=== PATIENT | male | born 1980 ===

== ENCOUNTER 2017-07-21 10:40 | Emergency (ER) | payer OTHER ==
[~2017-07-21] VITALS: Ht 195.6 cm; Wt 95.3 kg
[2017-07-21] MEDS ORDERED: ALLO300T2 PO (10:50)
[2017-07-21] MEDS ORDERED: COLC0.6C3 PO (10:50)
--- NOTE | 2017-07-21 10:50 | NUR ---
Dr Holder at the bedside for eval and exam.
[2017-07-21] MEDS ORDERED: KETOROLAC TROMETHAMINE 60 MG INJ IM ONE ×2 (11:00→11:09)
--- NOTE | 2017-07-21 11:05 | NUR ---
Patient discharged to home in stable conditon. Written and verbal after care instructions given. Patient verbalizes understanding of instructions. Pt left ER w/ steady gait.
[2017-07-21 11:06] VITALS: BP 112/75
== END 2017-07-21 11:14 | disposition home or self-care (01) ==
LOC: ER 10:43
DX: M54.41 Lumbago with sciatica, right side (principal); M10.9 Gout, unspecified
CPT/HCPCS: 96372; 99283; A4663; J1885

== ENCOUNTER 2022-06-19 16:06 | Inpatient (IN) | payer BC, OTHER ==
[~2022-06-19] VITALS: Ht 193 cm; Wt 99.8 kg
[~2022-06-19 16:06] MED LIST: ALLO300T2 PO; COLC0.6C3 PO
[2022-06-19] MEDS ORDERED: DIAZEPAM 10 MG/2 ML DISP.SYRIN IV ONE ×2 (16:15→18:15)
[2022-06-19] MEDS ORDERED: IV NORMAL SALINE 500 ML BAG IV ONE (16:15)
[2022-06-19 16:33] LABS: HEMATOCRIT 36.9 % (36.7-47.1); MEAN CORPUSCULAR VOLUME 95.6 fL (73.0-96.2); PLATELET COUNT (AUTO) 115 K/uL (152-348)
[2022-06-19] MEDS ORDERED: DIAZEPAM 10 MG/2 ML DISP.SYRIN ONE ×2 (16:38→18:06)
[2022-06-19 16:55] LABS: BILIRUBIN,TOTAL 3.7 mg/dL (0.2-1.0); CREATININE 1.3 mg/dL (0.6-1.3); POTASSIUM 3.3 mmol/L (3.5-5.1); TOTAL PROTEIN, SERUM 6.6 g/dL (6.4-8.2)
[2022-06-19] MEDS ORDERED: ONDANSETRON 4 MG/2 ML VIAL ONE (17:08)
[2022-06-19] MEDS ORDERED: ONDANSETRON 4 MG/2 ML VIAL IV ONE (17:15)
--- NOTE | 2022-06-19 17:33 | NUR ---
BIB [facility] FOR DIAPHORESIS, SHAKING, UNSTEADINESS AND POSSIBLE ALCOHOL WITHDRAWAL PER [facility]. PLACED ON A MONITOR, IV PLACED
[2022-06-19] MEDS ORDERED: MAGNESIUM SULFATE/D5W 100 ML ONE (18:32)
[2022-06-19] MEDS: MAGNESIUM SULFATE/D5W 100 ML IV SCH ×5 (18:55→23:30)
--- NOTE | 2022-06-19 19:07 | NUR ---
HAND OFF REPORT GIVEN TO ADRIANNE AGOSTO
--- NOTE | 2022-06-19 19:41 | NUR ---
pt was transferred to room 1a in the er, pt is icu status but he remains in er as the icu is not open. report given to Mary Alice AGOSTO.
[2022-06-19 20:00] VITALS: BP 156/84
[2022-06-19] MEDS ORDERED: POTASSIUM CHLORIDE 20 MEQ TAB.PRT.SR PO ONE (20:30)
[2022-06-19] MEDS ORDERED: ACETAMINOPHEN 325 MG TABLET PO PRN (20:45)
[2022-06-19] MEDS ORDERED: ONDANSETRON 4 MG/2 ML VIAL IV PRN (20:45)
[2022-06-19] MEDS ORDERED: REMEDY ESSENTIAL ZINC PASTE 113 GM TP PRN (20:45)
[2022-06-19] MEDS ORDERED: LORAZEPAM 2 MG/1 ML VIAL IV PRN (20:45)
[2022-06-19] MEDS ORDERED: MAGNESIUM HYDROXIDE 30 ML LIQUID UDC PO PRN (20:45)
[2022-06-19 20:57] LABS: POTASSIUM 3.2 mmol/L (3.5-5.1)
[2022-06-19 20:58] LABS: CREATININE 1.1 mg/dL (0.6-1.3)
[2022-06-19 20:59] LABS: MAGNESIUM 1.1 mg/dL (1.8-2.4)
[2022-06-19 21:00] VITALS: BP 158/78
[2022-06-19 22:00] VITALS: BP 156/84
[2022-06-19] MEDS ORDERED: PIPERACILLIN SODIUM/TAZOBACTAM 3.375 G in IV DEXTROSE 5% 50 ML IV SCH (22:00)
[2022-06-19] MEDS ORDERED: PIPERACILLIN SODIUM/TAZO 3.375 GM VIAL ONE (22:23)
[2022-06-19 23:00] VITALS: BP 156/76
[2022-06-19 23:07] LABS: CREATININE 1.1 mg/dL (0.6-1.3); POTASSIUM 3.2 mmol/L (3.5-5.1)
[2022-06-19 23:23] LABS: *BILIRUBIN,URIN NEGATIVE (NEGATIVE); *BLOOD, URINE 3+ (NEGATIVE); *COLOR,URINE YELLOW (YELLOW); *KETONES,URINE TRACE (NEGATIVE); LEUKOCYTE ESTERASE ,URINE NEGATIVE (NEGATIVE); NITRITE, URINE NEGATIVE (NEGATIVE); UGLUCOSE NEGATIVE (NEGATIVE)
[2022-06-19 23:26] LABS: *CLARITY,URINE SLIGHTLY CLOUDY (CLEAR)
[2022-06-19 23:29] LABS: *CREATININE,URINE 101.8 mg/dL (30-125)
[2022-06-19 23:34] LABS: *AMPHETAMINE, URINE NEGATIVE (NEGATIVE); *CANNABINOID, URINE NEGATIVE (NEGATIVE); *COCCAINE, URINE NEGATIVE (NEGATIVE); *OPIATE, URINE NEGATIVE (NEGATIVE); *PHENCYCLIDINE SCREEN,URINE NEGATIVE (NEGATIVE)
[2022-06-20] VITALS (7 sets, daily range): BP systolic 115–167; BP diastolic 78–87
[2022-06-20] MEDS: IV NS 1000 ML 1,000 ML IV PRN ×2 (01:04→20:07)
[2022-06-20] MEDS: HYDROCODONE/APAP 5-325MG TABLET PO PRN ×4 (01:06→06:38)
[2022-06-20] MEDS ORDERED: HYDROCODONE/APAP 5-325MG TABLET ONE ×2 (01:11→06:08)
[2022-06-20] MEDS ORDERED: MAGNESIUM SULFATE/D5W 200 ML ONE (01:34)
[2022-06-20] MEDS ORDERED: PIPERACILLIN SODIUM/TAZOBACTAM 3.375 G in IV DEXTROSE 5% 50 ML IV SCH (06:00)
[2022-06-20 06:43] LABS: HEMATOCRIT 33.7 % (36.7-47.1); MEAN CORPUSCULAR HEMOGLOBIN 34.6 uug (23.8-33.4); MEAN CORPUSCULAR VOLUME 94.7 fL (73.0-96.2); PLATELET COUNT (AUTO) 73 K/uL (152-348)
[2022-06-20 06:47] LABS: BILIRUBIN,DIRECT 1.2 mg/dL (0.0-0.2); BILIRUBIN,TOTAL 4.2 mg/dL (0.2-1.0); CREATININE 1.1 mg/dL (0.6-1.3); MAGNESIUM 2.7 mg/dL (1.8-2.4); PHOSPHOROUS 1.7 mg/dL (2.5-4.9); POTASSIUM 3.1 mmol/L (3.5-5.1)
[2022-06-20 06:58] LABS: THYROID STIMULATING HORMONE 3.092 mIU/mL (0.358-3.740)
[2022-06-20 07:37] LABS: BACTERIA,URINE FEW /HPF (NONE SEEN); SQUAMOUS EPITHELIAL CELL,UR FEW /HPF (NONE SEEN); WBC,URINE 0-3 /HPF (0-3)
--- NOTE | 2022-06-20 08:20 | NUR ---
Transported and received this patient from ER by bed , 42 yo male, admitted as Tele TD. Transferred to bed. Routine admission care rendered. Placed on Tele. Awake, alert, oriented x 4. Unsteady with assist to the bathroom and then to bed. IVF restarted. Seizure precaution enforced. Bed alarm on.
[2022-06-20] MEDS ORDERED: FOLIC ACID 1 MG TABLET PO SCH (09:00)
[2022-06-20] MEDS ORDERED: THIAMINE HCL 100 MG TABLET PO SCH (09:00)
[2022-06-20] MEDS: PIPERACILLIN SODIUM/TAZOBACTAM 3.375 G in IV DEXTROSE 5% 100 ML IV SCH ×3 (09:28→23:44)
[2022-06-20] MEDS: CHLORDIAZEPOXIDE HCL 25 MG CAPSULE PO SCH ×3 (09:29→17:13)
[2022-06-20] MEDS: PANTOPRAZOLE SODIUM 40 MG TABLET.DR PO SCH (09:31)
[2022-06-20] MEDS ORDERED: POTASSIUM CHLORIDE 20 MEQ TAB.PRT.SR PO ONE (10:00)
[2022-06-20] MEDS ORDERED: GABA800T11 PO (10:33)
[2022-06-20] MEDS ORDERED: QUET50TA PO (10:33)
--- NOTE | 2022-06-20 11:00 | NUR ---
With tremors and shakiness. Ativan given as ordered.
--- NOTE | 2022-06-20 13:30 | NUR ---
Awake. Ate lunch with fair appetite.
[2022-06-20] MEDS ORDERED: SODIUM PHOSPHATE MM 15 MMOL in IV NORMAL SALINE 250 ML IV ONE (16:00)
--- NOTE | 2022-06-20 17:55 | NUR ---
With fair appetite. Calm and compliant with care. IVF infusing. Medsurg status
--- NOTE | 2022-06-20 23:47 | NUR ---
some of pain assessments were not done, patient was in ER at that time.
[2022-06-21] MEDS ORDERED: predniSONE 20 MG TABLET PO ONE (00:44)
[2022-06-21] MEDS ORDERED: ALLOPURINOL 300 MG TABLET PO ONE (00:44)
--- NOTE | 2022-06-21 00:45 | NUR ---
RECEIVED ORDER FOR PATIENT TO HAVE ONE DOSE OF ALLOPURINOL 300MG PO AND PREDNISONE 20MG PO X1 PER PATIENT REQUEST FOR GOUT FLARE UP. ALL NEEDS ATTENDED. WILL CONTINUE TO MONITOR AND ASSESS.
[2022-06-21] MEDS: PANTOPRAZOLE SODIUM 40 MG TABLET.DR PO SCH (06:06)
--- NOTE | 2022-06-21 06:20 | NUR ---
PATIENT LEFT AMA. RN NURSING BATTERY INSPECTOR LEFT AMA. NOTIFIED RUBA JAIMES BORING MACHINE OPERATOR VERTICAL.
== END 2022-06-21 06:20 | disposition left against medical advice (07) | DRG 641 ==
LOC: ER 16:06 → TRANSITION 23:06 → TELE-TD3 06-20 08:16 → MEDSURG3 06-20 14:49
PROC: 0HQHXZZ Repair Right Upper Leg Skin, External Approach (ICD-10-PCS; principal; 2022-06-19)
DX: E87.1 Hypo-osmolality and hyponatremia (principal); F10.239 Alcohol dependence with withdrawal, unspecified; E87.20 Acidosis, unspecified; D69.6 Thrombocytopenia, unspecified; E83.42 Hypomagnesemia; E87.6 Hypokalemia; Z20.822 Contact with and (suspected) exposure to COVID-19; K76.0 Fatty (change of) liver, not elsewhere classified; R74.01 Elevation of levels of liver transaminase levels; R29.6 Repeated falls; S71.111A Laceration without foreign body, right thigh, initial encounter; X58.XXXA Exposure to other specified factors, initial encounter; Y93.89 Activity, other specified; Y92.69 Other specified industrial and construction area as the place of occurrence of the external cause; Y90.3 Blood alcohol level of 60-79 mg/100 ml
CPT/HCPCS: 36415; 70450; 70486; 71045; 72125; 76705; 82533; 83605; 83690; 83735; 83930; 83935; 84100; 84300; 84443; 84484; 85025; 85610; 85730; 87040; 93005; 97161; A4663; G0378; G0480; J2060; J2405; J2543; J3360; J3475; J3490; J7040; J7512